=== PATIENT | female | born 1965 | race African-American/Black ===

== ENCOUNTER 2016-07-14 15:32 | Emergency (ER) | payer SELFPAY ==
[2016-07-14 15:37] VITALS: BP 141/93; PULSE 106; TEMP 98; BMI 33.7
[2016-07-14] MEDS ORDERED: OXYCODONE/APAP 5/325MG COMBO TABLET PO ONE (15:39)
[2016-07-14] MEDS ORDERED: IBUPROFEN 600 MG TABLET (FP) PO ONE ×2 (15:39→16:08)
--- NOTE | 2016-07-14 15:39 | PDOC ---
Rapid Medical Evaluation Time Seen by Provider: 07/14/16 15:34 Medical Evaluation: 07/14/16 15:34 Pt comes after trip and fall on the uneven pavement around [address] yesterday. She had been seen at an urgent care center where she received a tylenol; she was told to take tylenol or motrin for pain. She was also told to follow with ortho. Ortho appt was "too hard" to set up as per daughter and pt is in pain so they came here for reevaluation. Pt took nothing for pain today. I ordered percocet and motrin here. Pt is complaining of bilateral elbow pain and strain. She will be sent for bilat elbow xrays.
[2016-07-14] MEDS ORDERED: OXYCODONE/APAP 5/325MG COMBO TABLET ONE (16:08)
--- NOTE | 2016-07-14 16:48 | PDOC ---
History of Present Illness - General Chief Complaint: Injury Stated Complaint: FALL/ RT ARM PAIN, RT FOOT PAIN Time Seen by Provider: 07/14/16 15:34 History Source: Patient Exam Limitations: No Limitations - History of Present Illness Initial Comments: 07/14/16 16:41 WITH DAUGHTER; cc ?? FRACTURES TO BOTH ELBOWS P[OST FALL YESTERDAYL; TOLD SHE MAY HAVE FRACTURE RIGHT ELBOW AT URGENT CARE YESTERDAY Occurred: reports: yesterday Severity: reports: moderate Pain Location: reports: upper extremity Method of Injury: Yes: fall Past History - Past Medical History Allergies/Adverse Reactions: Allergies Allergy/AdvReac Type Severity Reaction Status Date / Time No Known Allergies Allergy Verified 07/14/16 15:37 - Psycho/Social/Smoking Cessation Hx Suicidal Ideation: No Smoking History: Never smoked Information on smoking cessation initiated: No Review of Systems - Review of Systems Constitutional: No: Chills, Fever, Malaise HEENTM: No: Symptoms Reported Respiratory: No: Symptoms reported, Cough Cardiac (ROS): No: Symptoms Reported ABD/GI: No: Symptoms Reported : No: Symptoms Reported Musculoskeletal: Yes: Joint Pain, Joint Swelling Neurological: No: Numbness, Paresthesia, Tingling *Physical Exam - Vital Signs Last Vital Signs Temp Pulse Resp BP Pulse Ox 98 F 106 H 18 141/93 97 07/14/16 15:33 07/14/16 15:33 07/14/16 15:33 07/14/16 15:33 07/14/16 15:33 - Physical Exam General Appearance: Yes: Appropriately Dressed Neck: negative: Tender, Rigid Respiratory/Chest: positive: Lungs Clear Extremity: positive: Normal Capillary Refill, Other (STS TO RIGHT ELBOW, LIMITED ROM) Integumentary: positive: Normal Color, Dry, Warm Neurologic: negative: Sensory Deficit ED Treatment Course - Medications Given in the ED: ED Medications Discontinued Medications Generic Name Dose Route Start Last Admin Trade Name Miguel PRN Reason Stop Dose Admin Ibuprofen 600 mg 07/14/16 15:39 07/14/16 16:10 Motrin - PO 07/14/16 15:40 600 mg ONCE ONE Administration Oxycodone/Acetaminophen 1 combo 07/14/16 15:39 07/14/16 16:10 Percocet 5/325 - PO 07/14/16 15:40 1 combo ONCE ONE Administration Medical Decision Making - Medical Decision Making 07/14/16 16:46 XRAYS NOTED DISPLACED FRACTURE RIGHT RADIAL HEAD; AND ? NON DISPLACED FX LEFT ELBOW; SPOKE WITH DR RUFUS LOAIZA; HE WILL SEE PT IN OFFICE IN AM; RIGHT ELBOW RESPLINTED; SLING APPLIED TO LEFT ELBOW; DAUGHTER IS ABLE TO CARE FOR PT AT HER HOME; FAMILY AGREES PLAN F/U *DC/Admit/Observation/Transfer Diagnosis at time of Disposition: Fracture of elbow Qualifiers: Encounter type: initial encounter Fracture type: closed Laterality: right Qualified Code(s): S42.401A - Unspecified fracture of lower end of right humerus , initial encounter for closed fracture Fracture of left elbow Qualifiers: Encounter type: initial encounter Fracture type: closed Qualified Code(s): S42.402A - Unspecified fracture of lower end of left humerus, initial encounter for closed fracture - Discharge Dispostion Disposition: HOME Condition at time of disposition: Stable Admit: No - Referrals Referrals: Helder Hollis MD [Staff Physician] - - Patient Instructions Additional Instructions: PLEASE WEAR SLINGS AND SPLINT; PLEASE SEE DR HOLLIS TOMORROW;
== END 2016-07-14 16:58 | disposition home or self-care (01) ==
LOC: JERFT 15:32
PROC: 2W3CX1Z Immobilization of Right Lower Arm using Splint (ICD-10-PCS; principal; 2016-07-14)
DX: S42.401A Unspecified fracture of lower end of right humerus, initial encounter for closed fracture (principal); S42.402A Unspecified fracture of lower end of left humerus, initial encounter for closed fracture; W18.39XA Other fall on same level, initial encounter; Y93.9 Activity, unspecified; Y92.9 Unspecified place or not applicable
CPT/HCPCS: 73070-TC-LT; 73070-TC-RT; 99281-25